=== PATIENT | female | born 1985 | race Two or more races ===

== ENCOUNTER 2019-06-29 12:20 | Inpatient (IN) | payer OTHER ==
[2019-06-29] MEDS ORDERED: ELECTROLYTE-148 SOLN 500 ML IV ONE (12:54)
[2019-06-29] MEDS ORDERED: CITRIC ACID/SODIUM CITRATE 30 ML UNIT-DOSE CUP PO ONE (12:54)
[2019-06-29 12:55] VITALS: BMI 28.8
[2019-06-29] MEDS ORDERED: ELECTROLYTE-148 SOLN 1,000 ML IV SCH (13:00)
--- NOTE | 2019-06-29 13:09 | HP ---
Past Medical History - Primary Care Physician PCP:: Felix Jeong - Admission Chief Complaint: scheduled C/S and BTL History Source: Patient Limitations to Obtaining History: No Limitations - Past Medical History PRODUCT APPLICATIONS SCIENTIST: No: Alzheimer's, CVA, Dementia, Migraine, Multiple Sclerosis, Peripheral Neuropathy, Parkinson's, Seizure, Syncope, TIA, Vertigo, Other Cardiovascular: No: AFIB, Aneurysm, Aortic Insufficiency, Aortic Stenosis, CAD, CHF, Deep Vein Thrombosis, HTN, Hyperlipdemia, KS, Mitral Insufficiency, Mitral Stenosis, Murmur, Pulmonary Hypertension, Other Pulmonary: No: Asthma, Bronchitis, Cancer, COPD, O2 Dependent, Pneumonia, Previously Intubated, Pulmonary Embolus, Pulmonary Fibrosis, Sleep Apnea, Other Gastrointestinal: No: Ascites, Cancer, Constipation, Crohn's Disease, Diverticulitis, Diverticulosis, Esophageal Varices, Gastritis, GERD, GI Bleed, Hemorrhoids, Hiatal Hernia, Inflamatory Bowel Disease, Irritable Bowel Disease, Pancreatitis, Peptic Ulcer Disease, Ulcerative Colitis, Other Hepatobiliary: No: Cirrhosis, Cholelithiasis, Cholecystitis, Choledocholithiasis , Hepatitis A, Hepatitis B, Hepatitis C, Other Renal/: No: Renal Failure, Renal Inusuff, BPH, Cancer, Hematuria, Hemodialysis , Neurogenic Bladder, Renal Calculi, UTI, Other Reproductive: No: Ectopic , Endometriosis, Fibroids, PID, Polycystic Ovary Syndrome, Postmenopausal, Other ...: 2 ...Para: 1 ...Term: 1 ...: 0 ...Spon : 0 ...Induced : 0 ...Multiple Gestation: 0 ...LMP: 09/29/18 ... Weeks Gestation by Dates: 39.0 ...EDC by Dates: 07/06/19 ...EDC by Sono: 07/09/19 Heme/Onc: No: Anemia, B12 Deficiency, Bleeding Disorder, Cancer, Current Chemotherapy, Current Radiation Therapy, Hemochromatosis, Hypercoaguable State, Myeloproliferative Synd, Sickle Cell Disease, Sickle Cell Trait, Thrombocytopenia, Other Infectious Disease: No: AIDS, C-Diff, Herpes Zoster, HIV, MRSA, STD's, Tuberculosis, VREF, Other Psych: No: Addictions, Anxiety, Bipolar, Depression, Panic, Psychosis, Schizophrenia, Other Musculoskeletal: No: Bursitis, Chronic low back pain, Hemiparesis, Hemiplegia, Osteoarthritis, Paraplegia, Other Rheumatology: No: Fibromyalgia, Gout, Lupus, Rheumatoid Arthritis, Sarcoidosis, Vasculitis, Other ENT: No: Allergic Rhinitis, Sinusitis, Other Endocrine: No: Robert's Disease, Dontrell's Disease, Diabetes Insipidus, Diabetes Mellitus, Hyperparathyroidism, Hyperthyroidism, Hypothyroidism, Osteopenia, SIADH, Other Dermatology: No: Basal Cell, Cellulitis, Eczema, Melanoma, Psoriasis, Squamous Cell, Other - Past Surgical History Past Surgical History: Yes: (prior) Hx Myomectomy: No Hx Transabdominal Cerclage: No - Smoking History Smoking history: Never smoked Have you smoked in the past 12 months: No - Alcohol/Substance Use Hx Alcohol Use: No History of Substance Use: denies: None, Cocaine, Heroin, Marijuana, Prescription , Tranquilizers - Social History History of Recent Travel: No Home Medications - Allergies Allergies/Adverse Reactions: Allergies Allergy/AdvReac Type Severity Reaction Status Date / Time No Known Allergies Allergy Verified 06/29/19 12:41 - Home Medications Home Medications: Ambulatory Orders Vits96/Iron Fum/Folic [ Tablet] 1 each PO DAILY 06/29/19 Family Disease History - Family Disease History Family History: Unremarkable Review of Systems - Review of Systems Constitutional: reports: No Symptoms Eyes: reports: No Symptoms HENT: reports: No Symptoms Neck: reports: No Symptoms Cardiovascular: reports: No Symptoms Respiratory: reports: No Symptoms Gastrointestinal: reports: No Symptoms Genitourinary: reports: No Symptoms Breasts: reports: No Symptoms Reported Musculoskeletal: reports: No Symptoms Integumentary: reports: No Symptoms Neurological: reports: No Symptoms Endocrine: reports: No Symptoms Hematology/Lymphatic: reports: No Symptoms Psychiatric: reports: No Symptoms Physical Exam - Maternity Vital Signs: Vital Signs Temperature 98.2 F 06/29/19 12:46 Pulse Rate 94 H 06/29/19 12:46 Respiratory Rate 18 06/29/19 12:46 Blood Pressure 122/72 06/29/19 12:46 O2 Sat by Pulse Oximetry (%) Constitutional: Yes: No Distress, Calm Eyes: Yes: WNL HENT: Yes: Atraumatic, Normocephalic Neck: Yes: Supple Cardiovascular: Yes: Regular Rate and Rhythm Lungs: Other (deferred) Breast(s): Yes: Other (deferred) - Abdominal Exam/OB Number of Fetuses: Single Contractions: Yes Regularity: Irregular Intensity: Unaware Monitor Mode: External Category: I Accelerations: Uniform Decelerations: None - Vaginal Exam/OB Vaginal Bleediing: No - Physical Exam Musculoskeletal: Yes: WNL Extremities: Yes: WNL Edema: Yes Edema: LLE: 1+, RLE: 1+ Integumentary: Yes: WNL ...Motor Strength: WNL Psychiatric: Yes: Alert, Oriented - Labs Lab Results: reviewed Hemorrhage Risk Assessment - Risk Factors Medium Risk Factors: No: Prior , uterine surgery,or multiple laparotomies, Multiple gestation, Greater than 4 previous births, History of previous hemorrhage, Large myomas, EFW greater than 4000g, Obesity ( BMI >40), Hematocrit < 30% & other, None High Risk Factors: No: Placenta previa, low lying, Suspected accreta/ percreta, Active bleeding on admission, Platelets less than 70,000, Known coagulopathy, None Imaging - Results Ultrasound: Report Reviewed Problem List - Problems (1) Code(s): Z34.90 - ENCNTR FOR SUPRVSN OF NORMAL , UNSP, UNSP TRIMESTER Qualifiers: Weeks of gestation: 39 weeks Qualified Code(s): Z3A.39 - 39 weeks gestation of Assessment/Plan 33 y/o @ 39.0wks, prior C/S, desiring repeat C/S and BTL. Patient had been extensively counseled regarding procedures in the office. She again expressed understanding and desire for sterilization. Mode of sterilizations reviewed and BS selected by patient. Informed consent obtained and all questions answered. -Proceed with scheduled case.
[2019-06-29] MEDS ORDERED: OXYTOCIN 20 UNITS in 0.9% NS 20 UNIT/1,000 ML INFUS.BAG IV ONE ×2 (13:37→15:48)
[2019-06-29] MEDS ORDERED: morphine SULFATE/PF 0.5 MG/ML (2cc Syringe - QUVA) ONE (13:44)
[2019-06-29] MEDS ORDERED: ceFAZolin 2 GRAM PREMIX BAG IVPB ONE (13:45)
[2019-06-29] MEDS ORDERED: ceFAZolin SODIUM 1 GM VIAL ONE (14:25)
[2019-06-29] MEDS ORDERED: PHENYLEPHRINE HCL 10 MG/1 ML SINGLE DOSE VIAL ONE (15:19)
[2019-06-29] MEDS ORDERED: ONDANSETRON 4 MG/2 ML VIAL IVPUSH PRN (15:25)
[2019-06-29] MEDS ORDERED: IBUPROFEN 600 MG TABLET (FP) PO PRN (15:25)
[2019-06-29] MEDS ORDERED: ACETAMINOPHEN 325 MG TABLET (FP) PO PRN (15:25)
[2019-06-29] MEDS: OXYTOCIN 20 UNITS in 0.9% NS 20 UNIT/1,000 ML INFUS.BAG IV SCH (15:55)
[2019-06-29] MEDS ORDERED: METHYLERGONOVINE MALEATE 0.2 MG/1 ML AMP IM ONE (15:56)
--- NOTE | 2019-06-29 16:07 | OP ---
Operative Note - Note: Operative Date: 06/29/19 (dic #[id number]) Pre-Operative Diagnosis: previous c/s Operation: RLTCS and BTL Findings: see dictation Post-Operative Diagnosis: Same as Pre-op Surgeon: Felix Jeong Anesthesia: Spinal Specimens Removed: bilateral fallopian tubes Estimated Blood Loss (mls): 700 Drains, Volume Out (mls): 100 Fluid Volume Replaced (mls): 1,200 Operative Report Dictated: Yes
[2019-06-29] MEDS ORDERED: IBUPROFEN 800 MG/8 ML IJ IVPB ONE (16:23)
[2019-06-29] MEDS: IBUPROFEN 800 MG/8 ML IJ IVPB SCH (16:30)
[2019-06-29] MEDS: METHYLERGONOVINE MALEATE 0.2 MG TABLET (FP) PO SCH (20:11)
--- NOTE | 2019-06-29 20:20 | OP ---
DATE OF OPERATION: 06/29/2019 PREOPERATIVE DIAGNOSIS: This is a 33-year-old, 2, para 1 at 39 weeks gestation, desiring repeat section and sterilization. Patient counseled previously and desires bilateral salpingectomy as mode of sterilization. POSTOPERATIVE DIAGNOSIS: This is a 33-year-old, 2, para 1 at 39 weeks gestation, desiring repeat section and sterilization. Patient counseled previously and desires bilateral salpingectomy as mode of sterilization. PROCEDURE: Repeat low transverse section and bilateral salpingectomy. SURGEON: Wicho Harley MD ANESTHESIA: Spinal. INTRAVENOUS FLUIDS: Crystalloid 1200 mL. URINE: Clear urine 100 mL. ESTIMATED BLOOD LOSS: 700 mL. COMPLICATIONS: None. SPECIMEN: Bilateral fallopian tubes. FINDINGS: Lower transverse skin scar consistent with prior section. Moderate amount of subcutaneous adipose tissue. Fascia was fibrotic and adherent to the underlying rectus muscles. Rectus muscles were fused to each other in the midline. The bladder was adherent anteriorly to the parietal peritoneum. The lower uterine segment was slightly effaced. The infant was in cephalic presentation. Clear amniotic fluid. Live viable male. A small right broad ligament hematoma, non-pulsating and self-limited. Bladder dome/rectus muscle fascia interface was noted to be dry with no evidence of trauma. DESCRIPTION OF PROCEDURE: The patient was taken to the operating room where spinal anesthesia was found to be adequate. She was then prepped and draped in the normal sterile fashion. Urinary Win catheter was placed atraumatically. Appropriate timeout took place. A Pfannenstiel skin incision was made, following prior section scar. The incision was carried to the underlying fascia with the Bovie. The fascia was incised in the midline, and the incision was extended laterally with sharp dissection. The underlying rectus muscles were dissected off sharply. The rectus muscles were elevated with Allis clamps and transected vertically with the scalpel. Entry to the peritoneal cavity revealed no visceral adhesions at the point of entry. The incision was extended superiorly and inferiorly with sharp dissection. Bladder blade was placed in the lower uterine segment as noted previously. Transverse lower uterine segment incision was made with the scalpel and extended laterally with blunt dissection. was delivered through the surgical incision with moderate fundal pressure. The rectus muscle on the left side was slightly transverse medially to accommodate delivery of the infant. Umbilical cord was clamped after delay and sample cord gases and blood obtained. The was handed off to the waiting NICU staff. The placenta was delivered manually and intact. The uterus was exteriorized through the surgical incision, and the intrauterine cavity was cleared of all clots and debris. The hysterotomy incision was reapproximated with 1-0 Polysorb in a running locked fashion. Excellent reapproximation and hemostasis were noted. The right broad ligament hematoma was noted to be stable and self-limited, non-pulsating. Attention then was directed to the right fallopian tube which was elevated with Madison clamps. Mesosalpinx immediately adjacent to the tube was transected with the LigaSure instrument. The entire tube was excised, and the surgical stump was noted to be dry. Attention then was directed to the contralateral fallopian tube which underwent the exact same procedure I just mentioned. The uterus was internalized to the pelvic cavity, and gutters were cleared of all clots and debris. The bladder dome and the rectus muscle fascial interface were examined. A small area of oozing from the left corner of the uterine incision was neutralized with a [id number] of 1-0 Vicryl. Excellent hemostasis noted. Once again, the hysterotomy incision was noted to be hemostatically stable. The fascial incision was reapproximated with 0 Polysorb suture. Excellent structural reapproximation achieved and confirmed by digital palpation by the surgeon. Subcutaneous tissue was copiously irrigated, and bleeders neutralized with Bovie cautery. Skin incision was reapproximated with 3-0 subcuticular Vicryl suture. Patient tolerated the procedure well and is going to the recovery room in stable condition. Instrument count was reported as correct x2 by the staff. WICHO HARLEY MD [id number]
[2019-06-30] MEDS: METHYLERGONOVINE MALEATE 0.2 MG TABLET (FP) PO SCH ×4 (00:20→12:00)
[2019-06-30] MEDS: IBUPROFEN 800 MG/8 ML IJ IVPB SCH ×2 (00:21→08:11)
[2019-06-30] MEDS: OXYTOCIN 20 UNITS in 0.9% NS 20 UNIT/1,000 ML INFUS.BAG IV SCH ×2 (01:54→20:09)
--- NOTE | 2019-06-30 07:34 | PN ---
Post Progress Note - Subjective Subjective: Patient reports minimal flatus, no N/V, maldonado in place, lochia is regular Post Day: 1 Type of Delivery: Repeat C/S (BS) Vital Signs: Vital Signs Temperature 98.5 F 06/30/19 06:00 Pulse Rate 79 06/30/19 06:00 Respiratory Rate 18 06/30/19 06:00 Blood Pressure 103/54 L 06/30/19 06:00 O2 Sat by Pulse Oximetry (%) 98 06/29/19 16:25 Breast Exam: Yes: Other (deferred) Uterus: Yes: Fundus Firm Incision: Yes: Sutures intact Abdomen/GI: Yes: Abdomen soft Lochia, amount: Moderate Extremities: Yes: Calves non-tender (SCDs on) Activity: Other (maldonado in place) Problem List - Problems (1) Code(s): Z34.90 - ENCNTR FOR SUPRVSN OF NORMAL , UNSP, UNSP TRIMESTER Qualifiers: Weeks of gestation: 39 weeks Qualified Code(s): Z3A.39 - 39 weeks gestation of Assessment/Plan POD # 1 in stable condition -Continue PP and post-op care -F/U CBC -D/c maldonado and encourage ambulation
[2019-06-30 07:46] LABS: BASO % 0.4 % (0-2.0); EOS % 1.3 % (0-4.5); HEMATOCRIT 28.6 % (32.4-45.2); HEMOGLOBIN 9.7 GM/dL (10.7-15.3); LYMPH % 10.5 % (8-40); MCH 29.8 pg (25.7-33.7); MCHC 33.9 g/dl (32.0-36.0); MEAN CELL VOLUME 87.9 fl (80-96); MEAN PLT VOLUME 9.2 fl (7.5-11.1); MONO % 6.5 % (3.8-10.2); NEUT % 81.3 % (42.8-82.8); PLATELET COUNT 148 K/MM3 (134-434); RBC 3.26 M/mm3 (3.60-5.2); RDW 14.5 % (11.6-15.6); WHITE BLOOD COUNT 6.8 K/mm3 (4.0-10.0)
--- NOTE | 2019-06-30 11:39 | PN ---
Progress Note (short form) - Note Progress Note: Anesthesia postop note 33 y/o F s/p spinal anesthesia/duramorph for section POD#1, vss, aaox3, pain well controlled, sensory motor intact distally No anesthesia complications.
[2019-06-30] MEDS: IBUPROFEN 600 MG TABLET (FP) PO PRN ×2 (14:57→21:15)
[2019-06-30] MEDS: SIMETHICONE 80 MG TAB.CHEW (FP) PO PRN (14:58)
[2019-06-30] MEDS: oxyCODONE HCL 5 MG TABLET PO PRN ×2 (15:02→21:14)
[2019-06-30] MEDS ORDERED: BISACODYL 10 MG SUPP.RECT RC PRN (15:50)
[2019-06-30] MEDS: ACETAMINOPHEN 325 MG TABLET (FP) PO PRN (21:16)
[2019-07-01] MEDS: IBUPROFEN 600 MG TABLET (FP) PO PRN ×2 (07:37→15:06)
[2019-07-01] MEDS: SIMETHICONE 80 MG TAB.CHEW (FP) PO PRN ×2 (07:37→15:04)
[2019-07-01] MEDS: oxyCODONE HCL 5 MG TABLET PO PRN ×2 (07:38→15:05)
[2019-07-01] MEDS: ACETAMINOPHEN 325 MG TABLET (FP) PO PRN ×2 (07:39→15:05)
--- NOTE | 2019-07-01 07:53 | PN ---
Post Progress Note - Subjective Subjective: c/o pain scale 5/10 passing flatus bm not done Post Day: 2 Type of Delivery: Repeat C/S (BS) Vital Signs: Vital Signs Temperature 98.7 F 06/30/19 21:41 Pulse Rate 79 06/30/19 21:41 Respiratory Rate 18 06/30/19 21:41 Blood Pressure 97/57 L 06/30/19 21:41 O2 Sat by Pulse Oximetry (%) 98 06/29/19 16:25 Breast Exam: Yes: Soft, Other (breast feeding ). No: Engorged Uterus: Yes: Fundus Firm, Fundus below umbilicus, Non-tender Incision: Yes: Sutures intact (steri strips in situ). No: Redness, Oozing Abdomen/GI: Yes: Abdomen soft, Passing flatus, Tolerating PO (diet). No: Abdominal Distention, Tender Lochia: Yes: Rubra Lochia, amount: Moderate Extremities: Yes: Calves non-tender Perineum: Yes: Intact Activity: Ambulating - Labs Labs: CBC WBC 6.8 K/mm3 (4.0-10.0) 06/30/19 07:00 RBC 3.26 M/mm3 (3.60-5.2) L 06/30/19 07:00 Hgb 9.7 GM/dL (10.7-15.3) L 06/30/19 07:00 Hct 28.6 % (32.4-45.2) L 06/30/19 07:00 MCV 87.9 fl (80-96) 06/30/19 07:00 MCH 29.8 pg (25.7-33.7) 06/30/19 07:00 MCHC 33.9 g/dl (32.0-36.0) 06/30/19 07:00 RDW 14.5 % (11.6-15.6) 06/30/19 07:00 Plt Count 148 K/MM3 (134-434) D 06/30/19 07:00 MPV 9.2 fl (7.5-11.1) 06/30/19 07:00 Absolute Neuts (auto) 5.5 K/mm3 (1.5-8.0) 06/30/19 07:00 Neutrophils % 81.3 % (42.8-82.8) D 06/30/19 07:00 Lymphocytes % 10.5 % (8-40) D 06/30/19 07:00 Monocytes % 6.5 % (3.8-10.2) 06/30/19 07:00 Eosinophils % 1.3 % (0-4.5) 06/30/19 07:00 Basophils % 0.4 % (0-2.0) 06/30/19 07:00 Nucleated RBC % 0 % (0-0) 06/30/19 07:00 Problem List - Problems (1) care following delivery Code(s): Z39.2 - ENCOUNTER FOR ROUTINE FOLLOW-UP Assessment/Plan s/p rc/s btl day #2 stable rx suppository LA as per request ct po care wishes discharge tomorrow.
[2019-07-01] MEDS: PRENATAL VITAMINS W/ FOLIC ACID TABLET (FP) PO SCH (09:19)
[2019-07-01] MEDS: FERROUS SO4 325 MG TABLET (FP) PO SCH ×2 (09:19→22:02)
[2019-07-02] MEDS: oxyCODONE HCL 5 MG TABLET PO PRN (00:44)
[2019-07-02] MEDS: SIMETHICONE 80 MG TAB.CHEW (FP) PO PRN (00:44)
[2019-07-02] MEDS: IBUPROFEN 600 MG TABLET (FP) PO PRN (00:46)
--- NOTE | 2019-07-02 06:33 | DS ---
Physical Examination Vital Signs: Vital Signs Temperature 98.4 F 07/01/19 22:00 Pulse Rate 81 07/01/19 22:00 Respiratory Rate 18 07/01/19 22:00 Blood Pressure 126/74 07/01/19 22:00 O2 Sat by Pulse Oximetry (%) 98 06/29/19 16:25 Constitutional: Yes: Well Nourished, No Distress, Calm Eyes: Yes: WNL, Conjunctiva Clear, EOM Intact HENT: Yes: WNL, Atraumatic, Normocephalic Neck: Yes: WNL, Supple, Trachea Midline Cardiovascular: Yes: WNL, Regular Rate and Rhythm Respiratory: Yes: WNL, Regular, CTA Bilaterally Gastrointestinal: Yes: WNL, Normal Bowel Sounds Musculoskeletal: Yes: WNL Extremities: Yes: WNL Edema: No Integumentary: Yes: WNL Neurological: Yes: WNL, Alert, Oriented ...Motor Strength: WNL Psychiatric: Yes: WNL Labs: CBC, BMP 06/30/19 07:00 Discharge Summary Reason For Visit: REPEAT Current Active Problems care following delivery (Acute) (Acute) Procedures: Principal: RLTCS Hospital Course: Patient presented for scheduled RLTCS She had an uncomplicated procedure She met all postoperative milestones She was discharged home on POD#3 Deshawn Lin MD Condition: Stable - Instructions Diet, Activity, Other Instructions: Regular Diet Follow up in one week for an incision with Dr. Jeong Follow up in 4-6 weeks for your visit with Dr. Jeong Referrals: Felix Jeong MD [Staff Physician] - Disposition: HOME - Home Medications Comprehensive Discharge Medication List: Ambulatory Orders Vits96/Iron Fum/Folic [ Tablet] 1 each PO DAILY 06/29/19 Ibuprofen 600 mg PO Q6H PRN #30 tablet 07/01/19 Oxycodone HCl/Acetaminophen [Percocet 5-325 mg Tablet -] 1 - 2 tab PO Q6H PRN # 20 tab MDD 4 07/01/19
[2019-07-02 08:07] LABS: BASO % 0.6 % (0-2.0); EOS % 2.8 % (0-4.5); HEMATOCRIT 24.2 % (32.4-45.2); HEMOGLOBIN 8.1 GM/dL (10.7-15.3); LYMPH % 23.2 % (8-40); MCH 29.7 pg (25.7-33.7); MCHC 33.5 g/dl (32.0-36.0); MEAN CELL VOLUME 88.5 fl (80-96); MONO % 7.6 % (3.8-10.2); NEUT % 65.8 % (42.8-82.8); PLATELET COUNT 157 K/MM3 (134-434); RBC 2.74 M/mm3 (3.60-5.2); RDW 15.4 % (11.6-15.6); WHITE BLOOD COUNT 5.3 K/mm3 (4.0-10.0)
[2019-07-02] MEDS: PRENATAL VITAMINS W/ FOLIC ACID TABLET (FP) PO SCH (09:49)
[2019-07-02] MEDS: FERROUS SO4 325 MG TABLET (FP) PO SCH (09:49)
[2019-07-02 10:56] VITALS: BP 109/69; PULSE 85; TEMP 98.3
--- NOTE | 2019-07-03 20:15 | PATH ---
Surgical Pathology Report Patient Name: MATHEW CONKLIN [facility]. Rec. #: [id number] /Age/Gender: 1985 (Age: 33) / F Account: [id number] Location: [facility] OBS/ECONOMIC [place] Taken: 06/29/2019 Received: 06/30/2019 Reported: 07/03/2019 Physicians: Felix Jeong MD Specimen(s) Received A: PLACENTA B: RIGHT FALLOPIAN TUBE C: LEFT FALLOPIAN TUBE Clinical History , term gestation, previous Final Diagnosis A. PLACENTA: THIRD TRIMESTER PLACENTA. TRIVASCULAR CORD. MEMBRANES WITH NO DIAGNOSTIC ABNORMALITIES. B. PORTION OF RIGHT FALLOPIAN TUBE: COMPLETE CROSS SECTION OF THE FALLOPIAN TUBE IDENTIFIED. FOCAL STROMAL DECIDUAL CHANGE PRESENT. C. PORTION OF LEFT FALLOPIAN TUBE: COMPLETE CROSS SECTION OF THE FALLOPIAN TUBE IDENTIFIED. Electronically Signed Jed Joshi M.D. Gross Description A. The specimen is received fresh labeled placenta and is a 365 gram, 16.0 x 14.5 x 2.8 cm. placenta with attached membranes and umbilical cord. The attached membranes are ramos, thick, cloudy and insert marginally. The umbilical cord measures 6 cm. in length and averages 1.3 cm. in diameter. The cord inserts eccentrically, 3.5 cm. to the nearest margin. No true knots or strictures are identified. Cut surface of the umbilical cord reveals 3 vessels. The surface is lujan blue with moderate fibrin deposition and appropriate caliber vessels. The maternal surface is red-brown with focal defects. Sectioning reveals red-brown, spongy parenchyma. No lesions are identified. Tie In Machine Operator sections are submitted in three cassettes as follows: 1- membrane rolls and umbilical cord; 2-3- full thickness sections of placenta. B. Received in formalin labeled "portion of right fallopian tube," is a 7 cm in length fimbriated fallopian tube. The outer surface is ramos-sparks and smooth. Sectioning reveals unremarkable lumen. Tie In Machine Operator sections are submitted in 2 cassettes as follows: 1-fimbria; 2-cross sections of fallopian tube. C. Received in formalin labeled "left fallopian tube," is a 6 cm in length fimbriated fallopian tube. The outer surface is ramos-sparks and smooth. Sectioning reveals an unremarkable lumen. Tie In Machine Operator sections are submitted in 2 cassettes as follows: 1-fimbria; 2-cross sections of fallopian tube. /07/02/2019 [facility]07/02/2019
== END 2019-07-02 12:45 | disposition home or self-care (01) | DRG 540 ==
LOC: JLDR 12:20 → J3W 17:00
PROVIDERS: ADMIT Student in an Organized Health Care Education/Training Program; ATTEND Student in an Organized Health Care Education/Training Program
PROC: 10D00Z1 Extraction of Products of Conception, Low, Open Approach (ICD-10-PCS; principal; 2019-06-29)
PROC: 0UT70ZZ Resection of Bilateral Fallopian Tubes, Open Approach (ICD-10-PCS; 2019-06-29)
DX: O34.211 Maternal care for low transverse scar from previous cesarean delivery (principal); Z3A.39 39 weeks gestation of pregnancy; Z37.0 Single live birth; Z30.2 Encounter for sterilization
CPT/HCPCS: 36415; 36600; 82803; 85025; 86850; 86900; 86901; 88302-TC; 88307-TC